=== PATIENT | female | born 1935 | race Caucasian/White ===

== ENCOUNTER 2018-05-29 05:33 | Inpatient (IN) ==
[2018-05-29] MEDS ORDERED: Metoprolol Tartrate 25 MG Tablet PO ONE (05:58)
[2018-05-29] MEDS ORDERED: Chlorhexidine Gluconate 2% 1 Pack (2 Cloths) TOPICAL ONE (05:58)
[2018-05-29] MEDS ORDERED: Dexamethasone Inj 20 MG/5 ML Vial IV.PUSH ONE (05:59)
[2018-05-29] MEDS ORDERED: Sodium Chlor 0.9% Inj 73.07 ML, Ropivacaine 0.5% PF Inj 24.63 ML, Ketorolac Inj 30 MG, ... P-ARTICULR ONE ×5 (05:59)
[2018-05-29] MEDS ORDERED: Sodium Chlor 0.9% Inj 500 ML IV.SIG SCH (06:00)
[2018-05-29] MEDS ORDERED: SODIUM CHLOR 0.9% IV.SIG SCH ×2 (06:00→13:00)
[2018-05-29] MEDS ORDERED: TRANEXAMIC ACID IV.SIG SCH ×2 (06:00→13:00)
[2018-05-29] MEDS ORDERED: Vancomycin Inj 1,000 MG in Sodium Chlor 0.9% Inj 250 ML IV.SIG SCH (06:00)
[2018-05-29] MEDS ORDERED: ceFAZolin 2 GM Premix Inj 2 GM/50 ML PIGGYBACK IV.SIG SCH (06:00)
[2018-05-29] MEDS ORDERED: Chlorhexidine 4% Topical 120 APPLIC/120 ML Bottle TOPICAL SCH (06:00)
[2018-05-29] MEDS ORDERED: Bupivacaine Liposomal PF 1.3% Inj 20 ML Vial ONE (06:41)
[2018-05-29] MEDS ORDERED: Lidocaine PF 1% Inj 5 ML Vial ONE (06:42)
[2018-05-29] MEDS ORDERED: Dexamethasone PF Inj 10 MG/ML Vial ONE (06:52)
[2018-05-29] MEDS ORDERED: Lidocaine PF 1% Inj 5 ML Syringe OTHER ONE (08:05)
[2018-05-29] MEDS ORDERED: ALPRAZolam 0.25 MG Tablet PO PRN (10:17)
[2018-05-29] MEDS ORDERED: Aluminum/Magnesium/Simethacone Susp 30 ML UDC PO PRN (10:18)
[2018-05-29] MEDS ORDERED: Post-op Orders (for Pharmacy) OTHER STA (10:18)
[2018-05-29] MEDS ORDERED: Bisacodyl 10 MG Supp RECTAL PRN (10:18)
[2018-05-29] MEDS ORDERED: Morphine Inj 4 MG/ML Vial IV.PUSH PRN (10:18)
--- NOTE | 2018-05-29 10:21 | P.OP ---
- Preoperative Diagnosis (1) Osteoarthritis of left knee - Postoperative Diagnosis (1) Osteoarthritis of left knee Date of procedure: 05/29/18 Procedure: Left total knee arthroplasty [facility]est[facility] Surgeon: Mj Rosa MD Powder Loader: RODNEY aBiley The surgical procedure was assisted by my Advanced Registered Nurse Practitioner. My PHLEBOTOMY SERVICES TECHNICIAN presence was necessary throughout this case for the manipulation and positioning of the surgical extremity. My PHLEBOTOMY SERVICES TECHNICIAN was assisting me throughout the duration of this procedure. The skill set of an Advance Registered Nurse Practitioner was medically necessary to complete this procedure. During the surgical case, the ophthalmic surgical assistant was working at the back table and the Advance Registered Nurse Practitioner was directly assisting me. Operation and Findings: IMPLANTS: DePuy Attune: Patella: size 32. Femur, posterior stabilized size 5. Tibia, rotating platform size 4. Tibial insert, rotating platform, posterior stabilized size 8 mm thickness. ESTIMATED BLOOD LOSS: 100 cc TOURNIQUET TIME: 47 minutes at 250 mmHg pressure. JUSTIFICATION FOR PROCEDURE: The patient has end-stage osteoarthritis to the knee. There is an attached conservative measures pathway form in the chart that describes the nonoperative measures that were undertaken prior to consideration of surgical management. The patient understood the risks and benefits of surgical management. See my office notes for further details PROCEDURE: The patient was brought back to the operative theatre. Adequate anesthesia was obtained. The patient received intravenous vancomycin and Ancef. The lower extremity was prepped and draped in the usual sterile fashion.The leg was exsanguinated, the tourniquet was raised. A standard anterior incision was performed followed by medial parapatellar arthrotomy was performed. End-stage arthritis was identified. Osteotomy of the patella was performed. We drilled holes for the patella. We trialed the patella component. We placed an intramedullary guide into the distal femur. We ultimately resected 13 mm off of the distal femur in 5 degrees of valgus. The remnants of the ACL and PCL were resected. Osteotomy of the proximal tibia was performed, resecting 6 mm off of the medial side. This was done with 3 degrees of posterior slope using an extramedullary guide. The distal end of the guide was placed in the mid aspect of the ankle. The femur was sized, and four chamfer cuts were completed in 3 of external rotation. We then cut the central box in the distal femur to replace the PCL. We resected the remnants of the menisci and removed osteophytes off of the femur and tibia. We then trialed the knee. At this point we found that the lateral compartment was still quite contracted compared to the medial compartment. We tested this both in flexion and extension. We performed a sequential recession of the lateral side to obtain good balance in flexion and extension. We recessed the entire popliteus tendon, most of the iliotibial band , and about 50% of the lateral collateral ligament. This now gave good balance between the medial and lateral side. We punched the tibia for the keel, and then used standard technique to cement in components. Excess cement was removed. We trialed the knee again and the final polyethylene thickness was chosen to provide extension to 0 degrees, and flexion of 140 degrees to gravity. The ligaments were appropriately balanced. Lateral release was necessary to obtain excellent patellofemoral tracking. The tourniquet was released and adequate hemostasis was obtained. An intra- articular injection of a ropivacaine cocktail was injected. The posterior knee was inspected for excess cement, which was removed. The final polyethylene was put into position after thorough irrigation. We then closed the arthrotomy site with a #2 Stratafix, followed by fascia with #2-0 Stratafix, followed by skin with 2-0 Vicryl followed by Dermabond dressing. Postop plan is to weight-bear as tolerated. DVT prophylaxis will be performed with SCDedita, IFEANYI swain, early mobilization, and Ancef.
[2018-05-29] MEDS ORDERED: *morphine SULFATE 4 MG/ML PERIprocedure ONLY ONE ×2 (11:05→11:33)
[2018-05-29] MEDS ORDERED: fentaNYL Citrate Inj 100 MCG/2 ML Ampul ONE (11:09)
--- NOTE | 2018-05-29 11:27 | XR ---
EXAM DATE: 05/29/2018 11:25 AM EST AGE/SEX: 82 years / Female INDICATIONS: Post OP total knee replacement. CLINICAL DATA: This is the patient's initial encounter. Patient reports that signs and symptoms have been present for 1 day and indicates a pain score of 7/10. MEDICAL/SURGICAL HISTORY: None. None. COMPARISON: No prior exams available for comparison. FINDINGS: The patient is status post left total knee replacement with prosthesis in good position. CONCLUSION: Status post left total knee replacement with prosthesis in good position. Electronically signed by: Benigno Ramirez MD Board Certified Radiologist 05/29/2018 11:25 AM EST
[2018-05-29] MEDS: Sod Chloride 0.9% Inj 1,000 ML IV.CONT SCH (11:30)
[2018-05-29] MEDS: ceFAZolin Inj 1 GM in Sodium Chlor 0.9% Inj 100 ML IV.SIG SCH ×2 (15:14→20:49)
[2018-05-29] MEDS: Multivitamin/Minerals Therapeutic Tablet PO SCH (20:56)
[2018-05-29] MEDS: Senna/Docusate Sodium 8.6/50 MG Tablet PO SCH (20:56)
[2018-05-29] MEDS ORDERED: Zolpidem Tartrate 5 MG Tablet PO PRN (21:00)
[2018-05-30] MEDS: ceFAZolin Inj 1 GM in Sodium Chlor 0.9% Inj 100 ML IV.SIG SCH (03:30)
[2018-05-30 05:55] LABS: Hematocrit 33.7 % (35.0-46.0)
--- NOTE | 2018-05-30 07:24 | P.PNOP ---
Subjective Interval history: The patient is resting comfortably in bed in no acute distress. The patient has minimal pain to the left knee. The patient states she does want to go home today with home health. Physical Exam Vital signs: Vital Signs 05/29/18 07:55 05/29/18 10:52 05/29/18 11:00 Temperature 97.4 F L Pulse Rate 77 75 74 Respiratory Rate 16 16 Blood Pressure 134/62 131/59 L Pulse Oximetry 97 98 100 05/29/18 11:15 05/29/18 11:30 05/29/18 11:45 Temperature Pulse Rate 65 66 68 Respiratory Rate 16 15 15 Blood Pressure 117/55 L 127/59 L 118/63 Pulse Oximetry 100 100 100 05/29/18 12:00 05/29/18 12:15 05/29/18 12:30 Temperature Pulse Rate 62 57 L 57 L Respiratory Rate 15 15 17 Blood Pressure 117/59 L 126/59 L 121/60 Pulse Oximetry 97 98 98 05/29/18 13:00 05/29/18 14:00 05/29/18 15:00 Temperature 97.7 F Pulse Rate 74 61 71 Respiratory Rate 17 16 17 Blood Pressure 117/56 L 118/58 L 111/72 Pulse Oximetry 97 94 L 95 05/29/18 16:13 05/29/18 20:05 05/30/18 00:08 Temperature 97.5 F L 97.5 F L Pulse Rate 75 66 80 Respiratory Rate 17 19 18 Blood Pressure 108/70 119/59 L 107/54 L Pulse Oximetry 95 98 96 05/30/18 04:00 Temperature 97.3 F L Pulse Rate 75 Respiratory Rate 18 Blood Pressure 117/58 L Pulse Oximetry 96 Intake & Output 05/29/18 05/30/18 05/30/18 18:59 06:59 18:59 Intake Total 1615.66 / 1615.66 336 / 336 Output Total 575 / 575 Balance 1040.66 / 1040.66 336 / 336 Weight 78.3 kg Intake: IV 615.66 / 615.66 336 / 336 NS Inj 1,000 ML @ 80 mls/hr IV. 236 / 236 CONT .[id number] [facility] Rx#:[id number] Cyklokapron Inj 783 MG In NS 215.66 / 215.66 Inj 100 ML @ 200 mls/hr IV.SIG FISHER EEL [facility] Rx#:[id number] Vancomycin Inj 1,000 MG In NS 250 / 250 Inj 250 ML @ 250 mls/hr IV.SIG FISHER EEL [facility] Rx#:[id number] Ancef 2 GM Premix Inj 2 gm In 50 / 50 50 ml @ 100 mls/hr IV.SIG FISHER EEL [facility] Rx#:[id number] Ancef Inj 1 GM In NS Inj 100 ML 100 / 100 100 / 100 @ 200 mls/hr IV.SIG Q6H [facility] Rx #:[id number] Oral 100 / 100 Anesthesia Amount 900 / 900 Output: Urine 500 / 500 Estimated Blood Loss 75 / 75 Other: # Voids 1 3 Date of Last Bowel Movement 05/28/18 05/28/18 Narrative: The patient's dressing is clean, dry, and intact. EHL/TA/G are intact. 2+ pedal pulse. The patient's calf is soft and nontender. Sensation is intact to light touch distally. Results - Labs CBC & Chem 7: 05/30/18 04:58 Laboratory Results - last 24 hr 05/29/18 05/30/18 06:45 04:58 Hgb 12.0 Hct 33.7 L Blood Type B Positive Blood Type Recheck Required Antibody Screen Negative - Imaging Impressions Knee X-Ray 05/29/18 10:18 CONCLUSION: Status post left total knee replacement with prosthesis in good position. - Procedures Left total knee arthroplasty Assessment and Plan - Assessment and Plan POD #1: Left total knee arthroplasty 1. Weightbearing as tolerated on left lower extremity. 2. [Aspirin 81 mg BID] for DVT prophylaxis. 3. Ice as needed for swelling. 4. Stable per ortho for discharge to [home] today. [facility] will continue with physical therapy at home. 5. The patient will follow up with Dr. Rosa and/or RODNEY Hooker as previously scheduled.
[2018-05-30] MEDS ORDERED: Dexamethasone Inj 20 MG/5 ML Vial IV.PUSH ONE (08:00)
[2018-05-30] MEDS: Sod Chloride 0.9% Inj 1,000 ML IV.CONT SCH (08:33)
[2018-05-30] MEDS ORDERED: amLODIPine 5 MG Tablet PO SCH (09:00)
[2018-05-30] MEDS ORDERED: Propranolol 10 MG Tablet PO SCH (09:00)
[2018-05-30] MEDS: hydroCHLOROthiazide 25 MG Tablet PO SCH ×2 (09:15→12:54)
[2018-05-30] MEDS: Multivitamin/Minerals Therapeutic Tablet PO SCH (09:15)
[2018-05-30] MEDS: Senna/Docusate Sodium 8.6/50 MG Tablet PO SCH (09:16)
[2018-05-30 13:25] VITALS: BP 148/69; PULSE 63; RESP 18; TEMP 97.3; O2SAT 96
--- NOTE | 2018-06-02 20:35 | P.DS ---
Date of admission: 05/29/18 05:33 Primary care physician: Mally Rapp MD Attending physician on discharge: Mj Rosa Anticipated date of discharge: 05/30/18 Brief History from admission: The patient was admitted to the hospital for severe OA of the left knee to have a left TKA. DS: Diagnosis - Discharge Diagnosis (1) Status post total knee replacement, left Status: Acute (2) Osteoarthritis of left knee Status: Acute DS: Summary Hospital Course: The patient was admitted to the hospital for severe osteoarthritis of the [left ] knee to have a [left] total knee arthroplasty. The patient's surgery went well with no complication. The patient is on a [regular] diet. The patient's DVT prophylaxis includes use of [aspirin 81 mg BID]. The patient is weightbearing as tolerated. The patient was discharged [home with physical therapy from [facility]] and will follow up in the office with Dr. Rosa and/or RODNEY Hooker as previously scheduled. - Time Spent with Patient Total time spent providing and/or coordinating discharge services: Greater than 30 minutes - Quality: VTE Deep Vein Thrombosis/Pulmonary Embolism Present on Admission: No Exam Narrative: The patient's dressing is clean, dry, and intact. EHL/TA/G are intact. 2+ pedal pulse. The patient's calf is soft and nontender. Sensation is intact to light touch distally. Results Procedures completed during hospitalization: Left total knee arthroplasty - Impressions ITS Impressions Knee X-Ray 05/29/18 10:18 CONCLUSION: Status post left total knee replacement with prosthesis in good position. Discharge Plan - Discharge Disposition Patient Disposition: 01 Discharge Home - Discharge Condition Condition: Stable - Discharge Order Discharge Orders: Discharge Order (Routine); Ordered 05/29/18 Ordered By: Pernell Fox - Discharge Details Anticipated Discharge Date: 05/30/18 - Physicians Team Primary Care Provider: Mally Rapp Attending Provider: Mj Rosa - Rxs /Orders / Referrals /Forms Prescriptions: Continue alprazolam 0.25 mg Tablet 0.25 mg PO BID PRN (Reason: Anxiety) amlodipine 5 mg Tablet 5 mg PO DAILY losartan-hydrochlorothiazide 100-25 mg Tablet 1 tab PO DAILY pravastatin 20 mg Tablet 20 mg PO DAILY propranolol 10 mg Tablet 10 mg PO DAILY Discontinued ibuprofen [Advil] 200 mg Tablet 200 mg PO Q6-8H PRN (Reason: Pain) Ambulatory Orders / Order Sets / DME: Adjustable Commode 3-in-1 (1 each) (Routine) Location: Determined by Patient Ordered By: Pernell Fox CPM - Continuous Passive Motion Machine (1 each) (Routine) Location: Determined by Patient Ordered By: Pernell Fox Walker With Front Wheels (1 each) (Routine) Location: Determined by Patient Ordered By: Pernell Fox Referrals: Mj Rosa MD [Physician] - See Instructions (F/U in the office as previously scheduled with Dr. Rosa. Your appointment has been scheduled for 06/06/18 at 8:45 am. If you cannot make this appointment, please call the office to reschedule ) Mally Rapp MD [Primary Care Provider] - See Instructions (Please call to make follow up appointment with your Primary care Physician. ) - Discharge Instructions Patient Printed Instructions: How to Choose and Use a Walker (GEN), Fall Prevention (DC), Knee Immobilizer (DC), Continuous Passive Motion Machine (DC), Knee Replacement (DC) Additional Instructions: Weight bearing as tolerated to left leg. No not change dressing. Keep dressing clean and dry. Make sure to take your medication as ordered by your doctor. Keep your schedule appointment with . No driving until cleared by your Doctor. - Post Discharge Care Plan Care Plan Goals: Discharge Care Plan Goals for Total Knee Replacement You have undergone knee replacement surgery. Your doctor replaced your painful joint with an artificial joint to relieve pain and restore movement. Here are some goals to help you heal well. Directions to Meet your Goals: 1. Activity & Exercises: * Take pain medicine as directed by your doctor. * Sit in chairs with arms. The arms make it easier for you to stand up or sit down. * Dont sit for more than 30 to 45 minutes at one time. * Nap if you are tired, but dont stay in bed all day. * Sleep with a pillow under your ankle, not your knee. Be sure to change the position of your leg during the night. * Wear the support stockings you were given in the hospital as directed by your surgeon. 2. Prevent Falls/Injury: The zelaya to successful recovery is movement with walking and exercising your knee as directed by your doctor. * Arrange your household to keep the items you need handy. Keep everything else out of the way. * Remove items that may cause you to fall, such as throw rugs and electrical cords. * Use nonslip bath mats, grab bars, an elevated toilet seat, and a shower chair in your bathroom * Sit on a shower stool or chair when you shower to keep from falling. * Until your balance, flexibility, and strength improve, use a cane, crutches, a walker, handrails, or someone to help you. * Keep your hands free by using a backpack, jamel pack, apron, or pockets to carry things * Walk up and down stairs with support. Try one step at a time. Use the railing if possible. * Dont drive until your doctor says its OK. * Dont drive while you are taking opioid pain medicine. 3. Precautions: * Prevent infection. Any infection will need to be treated immediately. Call your doctor right away if you think you might have an infection. * Tell your dentist that you have an artificial joint and take antibiotics as prescribed before any dental work. * Tell all your healthcare providers about your artificial joint before any medical procedure. * Maintain a healthy weight. Get help to lose any extra pounds. Added body weight puts stress on the knee. * Your medications may include blood-thinning medicine to prevent blood clots or antibiotics to prevent infection-prevent any falls or cuts 4. Incision Care: * Prevent infection by washing your hands often. If an infection occurs, it will need to be treated right away. * Call your doctor right away if you think you may have an infection. Symptoms include a fever or an incision that leaks white, green, or yellow fluid. * Don't soak your incision in water until your doctor says its OK. This means no hot tubs, bathtubs, or swimming pools. * Follow your doctor's instructions for changing the dressing. * Dont rub the incision, or apply creams or lotions to it. * If you notice any redness or drainage around the bandage site, contact your surgeon's office immediately. 5. Follow-Up: Do Not miss your follow-up appointment. Keep up with all your appointments and yearly check ups When to call your doctor: Call your doctor right away if you have: Fever of 100.4F (38C) or higher, or as directed by your doctor Shaking chills Stiffness, or inability to move the knee Increased swelling in your leg Increased redness, tenderness, or swelling in or around the knee incision Drainage from the knee incision Increased knee pain Call 911: Call 911 right away if you have: Chest pain Shortness of breath Any pain or tenderness in your calf
== END 2018-05-30 14:53 | disposition home or self-care (01) | DRG 470 ==
LOC: HSDI 05:33 → N06 15:33
PROVIDERS: ADMIT Orthopaedic Surgery; ATTEND Orthopaedic Surgery
CPT/HCPCS: 73560; 85014; 85018; 86850; 86900; 86901; 94150; 97110; 97116; 97150; 97162; C1776; C9290; J0131; J0171; J0690; J0735; J1100; J1580; J1885; J2250; J2270; J2405; J2704; J2795; J3010; J3370; J7030; J7050; J7120; L1830